=== PATIENT | male | born 1975 | race Caucasian/White ===

== ENCOUNTER → 2019-01-14 | Outpatient (CLI) | payer SELFPAY ==
[2019-01-15 10:33] LABS: RUBELLA IgG QUALITATIVE IMMUNE (IMMUNE)
== END ==
LOC: M WUC 13:26
PROVIDERS: ATTEND Physician Assistant
DX: Z02.1 Encounter for pre-employment examination (principal)

== ENCOUNTER 2020-04-20 12:14 | Emergency (ER) | payer OTHER, MEDICAID, SELFPAY ==
[~2020-04-20] VITALS: Ht 172.7 cm; Wt 69.5 kg
[2020-04-20] MEDS ORDERED: NS 1,000 ML IV SCH (13:14)
[2020-04-20] MEDS ORDERED: KETOROLAC 30 MG/ML 1ML VIAL IV ONE (13:15)
[2020-04-20 13:21] LABS: BASO # 0.1 10^3/uL (0.0-0.2); BASO % 0.6 % (0.0-1.0); EOS # 0.1 10^3/uL (0.0-0.5); EOS % 1.1 % (0.0-3.0); HEMATOCRIT 45.8 % (42.0-52.0); LYMPH # 2.4 10^3/uL (1.5-5.0); LYMPH % 25.6 % (24.0-44.0); MEAN CORPUSCULAR HEMOGLOBIN 30.5 pg (27.0-33.0); MEAN CORPUSCULAR HGB CONC 32.8 g/dl (32.0-36.5); MEAN CORPUSCULAR VOLUME 93.1 fl (80.0-96.0); MONO # 0.6 10^3/uL (0.0-0.8); MONO % 6.3 % (0.0-5.0); NEUTROPHILS # 6.1 10^3/uL (1.5-8.5); NEUTROPHILS % 66.2 % (36.0-66.0); PLATELET COUNT, AUTOMATED 253 10^3/uL (150-450); RED BLOOD COUNT 4.92 10^6/uL (4.30-6.10); WHITE BLOOD COUNT 9.3 10^3/uL (4.0-10.0)
[2020-04-20 13:52] LABS: ALBUMIN 3.9 GM/DL (3.2-5.2); ALT/SGPT 33 U/L (12-78); BILIRUBIN,DIRECT < 0.1 MG/DL (0.0-0.2); BILIRUBIN,TOTAL 0.2 MG/DL (0.2-1.0); BLOOD UREA NITROGEN 15 MG/DL (7-18); CALCIUM LEVEL 8.9 MG/DL (8.5-10.1); CARBON DIOXIDE LEVEL 28 MEQ/L (21-32); CHLORIDE LEVEL 110 MEQ/L (98-107); CK-MB VALUE MASS 1.3 NG/ML (<3.6); CPK CREATINE PHOSPHOKINASE 61 U/L (39-308); CREATININE FOR GFR 0.93 MG/DL (0.70-1.30); GLOMERULAR FILTRATION RATE > 60.0 (>60); GLUCOSE, FASTING 83 MG/DL (70-100); LIPASE 182 U/L (73-393); MB/CK RELATIVE INDEX 2.13 (< OR =4); POTASSIUM SERUM 3.8 MEQ/L (3.5-5.1); SODIUM LEVEL 141 MEQ/L (136-145); TROPONIN I < 0.02 NG/ML (< 0.10)
[2020-04-20] MEDS ORDERED: ISOVUE-370 76% 100ML VIAL As Ordered ONE (14:05)
[2020-04-20] MEDS ORDERED: MORPHINE 4 MG/ML 1ML VIAL/SYRINGE (J2270) IV ONE (14:30)
--- NOTE | 2020-04-20 14:52 | REPVR ---
PROCEDURE INFORMATION: Exam: CT Abdomen And Pelvis With Contrast Exam date and time: 04/20/2020 2:07 PM Age: 45 years old Clinical indication: Abdominal pain; Flank; Left; Additional info: Left flank pain TECHNIQUE: Imaging protocol: Computed tomography of the abdomen and pelvis with intravenous contrast. Radiation optimization: All CT scans at this facility use at least one of these dose optimization techniques: automated exposure control; mA and/or kV adjustment per patient size (includes targeted exams where dose is matched to clinical indication); or iterative reconstruction. Contrast material: ISOVUE 370; Contrast volume: 100 ml; Contrast route: INTRAVENOUS (IV); COMPARISON: No relevant prior studies available. FINDINGS: Lungs: Chest/lung findings are dictated separately. Liver: Normal. No mass. Gallbladder and bile ducts: There has been a cholecystectomy. No significant biliary ductal dilatation. Pancreas: Normal. No ductal dilation. Spleen: Normal. No splenomegaly. Adrenals: Normal. No mass. Kidneys and ureters: Normal. No hydronephrosis. Stomach and bowel: Unremarkable. No obstruction. No mucosal thickening. Appendix: No evidence of appendicitis. Intraperitoneal space: Unremarkable. No free air. No significant fluid collection. Vasculature: Unremarkable. No abdominal aortic aneurysm. Lymph nodes: Unremarkable. No enlarged lymph nodes. Bladder: Bladder is nondistended, limiting evaluation. Reproductive: Unremarkable as visualized. Bones/joints: Unremarkable. No acute fracture. Soft tissues: Tiny fat containing bilateral indirect inguinal hernias. IMPRESSION: No acute abnormality within the abdomen/pelvis. Electronically signed by: Mariela Rice On 04/20/2020 14:52:08 PM
--- NOTE | 2020-04-20 15:02 | REPVR ---
PROCEDURE INFORMATION: Exam: CT Angiography Chest With Contrast Exam date and time: 04/20/2020 2:07 PM Age: 45 years old Clinical indication: Shortness of breath; Additional info: SOB, hurts to breathe TECHNIQUE: Imaging protocol: Computed tomographic angiography of the chest with intravenous contrast. 3D rendering (Not supervised by radiologist): MIP and/or 3D reconstructed images were created by the technologist. Radiation optimization: All CT scans at this facility use at least one of these dose optimization techniques: automated exposure control; mA and/or kV adjustment per patient size (includes targeted exams where dose is matched to clinical indication); or iterative reconstruction. Contrast material: ISOVUE 370; Contrast volume: 100 ml; Contrast route: INTRAVENOUS (IV); COMPARISON: No relevant prior studies available. FINDINGS: Pulmonary arteries: Normal. No pulmonary emboli. Aorta: Unremarkable. No aortic aneurysm. No aortic dissection. Lungs: Noncalcified 11 mm left lower lobe pulmonary nodule (series 401, image 115). Pleural space: Unremarkable. No pneumothorax. No pleural effusion. Heart: Unremarkable. No cardiomegaly. No pericardial effusion. Lymph nodes: Unremarkable. No enlarged lymph nodes. Bones/joints: Unremarkable. No acute fracture. Soft tissues: Unremarkable. Other findings: Abdominal findings are dictated separately. IMPRESSION: 1. No evidence of pulmonary embolism. 2. Noncalcified 11 mm left lower lobe pulmonary nodule. Recommend comparison with any prior CT examinations that are available. If none are available, recommend followup according to Fleischner criteria. Fleischner society recommendations for followup and management of pulmonary nodules in adults detected incidentally on screening CT (2017): Less than or equal to 6 mm (solitary or multiple): Low risk patients- no followup needed. High risk patients- optional CT in 12 months. 6-8 mm nodule (solitary): Low-risk patients- CT at 6-[address] at 18-24 months. High risk patients- CT at 6-12 months, then CT at 18-24 months. 6-8 mm nodule (multiple): Low-risk patients- CT at 3-[address] at 18-24 months. High risk patients- CT at 3-6 months, then CT at 18-24 months. >8 mm (solitary): Low-risk patients- consider CT, PET/CT, or tissue sampling at 3 months. High-risk patients- same as for low-risk patients. >8mm (multiple): Low-risk patients - CT at 3-6 months, then at 18-24 months. High-risk patients - same as for low risk patients. Electronically signed by: Mariela Rice On 04/20/2020 15:01:43 PM
[2020-04-20 16:00] VITALS: BP 126/87
--- NOTE | 2020-04-21 10:33 | ED PDOC ---
Post-Departure Follow-Up [facility] chest [facility] and to dr madeline mclain for fu Pattie Horn MD Apr 21, 2020 10:33
--- NOTE | 2020-05-04 15:13 | ECGEPIP ---
[facility] - ED Test Date: 2020-04-20 Pat Name: WALLACE MEYER Department: Room: - Gender: Male [employer]: coral : 1975 Requested By: DUANE Poe Order Number: [id number] Reading MD: Rigoberto Le Measurements Intervals [place] Rate: 57 P: 64 LA: 160 QRS: 39 QRSD: 89 T: 60 QT: 417 QTc: 406 Interpretive Statements SINUS BRADYCARDIA SEE SCANNED DOWNTIME REPORT
== END 2020-04-20 16:21 | disposition home or self-care (01) ==
LOC: M ED 12:14
DX: R91.1 Solitary pulmonary nodule (principal); R06.02 Shortness of breath; F41.9 Anxiety disorder, unspecified; Z87.442 Personal history of urinary calculi; F17.200 Nicotine dependence, unspecified, uncomplicated
CPT/HCPCS: 71275; 74177; 80048; 80076; 81001; 82550; 82553; 83690; 85025; 93005; 93041; 96361; 96374; 96375; 99284; J1885; J2270; Q9967

== ENCOUNTER → 2020-06-09 | Outpatient (REF) | payer OTHER ==
[2020-06-09 18:23] LABS: CHOLESTEROL LEVEL 191 MG/DL (<200); CHOLESTEROL RISK RATIO 5.617 (<5); HDL CHOLESTEROL 34 MG/DL (>40); LDL CHOLESTEROL 135 MG/DL (<100); NON-HDL-C 157 MG/DL; TRIGLYCERIDES LEVEL 110 MG/DL (<150)
[2020-06-09 18:48] LABS: HEMOGLOBIN A1c 5.4 %
[2020-06-09 19:10] LABS: HIV 1&2 SCREEN CENTAUR NEGATIVE (NEGATIVE)
== END ==
LOC: M SFHCPLAZ 14:43
DX: Z00.00 Encounter for general adult medical examination without abnormal findings (principal)

== ENCOUNTER → 2021-06-26 | Outpatient (CLI) | payer OTHER ==
[2021-06-26 15:42] LABS: HEMATOCRIT 42.1 % (42.0-52.0); MEAN CORPUSCULAR HGB CONC 33.3 g/dl (32.0-36.5); MEAN CORPUSCULAR VOLUME 93.3 fl (80.0-96.0); PLATELET COUNT, AUTOMATED 258 10^3/uL (150-450); RED BLOOD COUNT 4.51 10^6/uL (4.30-6.10); WHITE BLOOD COUNT 7.8 10^3/uL (4.0-10.0)
[2021-06-26 16:13] LABS: ALBUMIN 3.9 GM/DL (3.2-5.2); ALT/SGPT 21 U/L (12-78); BILIRUBIN,TOTAL 0.3 MG/DL (0.2-1.0); BLOOD UREA NITROGEN 19 MG/DL (7-18); CALCIUM LEVEL 9.4 MG/DL (8.5-10.1); CARBON DIOXIDE LEVEL 27 MEQ/L (21-32); CHLORIDE LEVEL 111 MEQ/L (98-107); CHOLESTEROL LEVEL 177 MG/DL (<200); CREATININE FOR GFR 1.13 MG/DL (0.70-1.30); FREE T4 0.86 NG/DL (0.76-1.46); GLOMERULAR FILTRATION RATE > 60.0 (>60); GLUCOSE, FASTING 94 MG/DL (70-100); HDL CHOLESTEROL 30 MG/DL (>40); LDL CHOLESTEROL 85 MG/DL (<100); NON-HDL-C 147 MG/DL; POTASSIUM SERUM 3.9 MEQ/L (3.5-5.1); SODIUM LEVEL 143 MEQ/L (136-145); TOTAL PROTEIN 7.1 GM/DL (6.4-8.2); TRIGLYCERIDES LEVEL 310 MG/DL (<150)
[2021-06-26 16:56] LABS: HEPATITIS C VIRUS ABY INDEX 0.1 INDEX (<0.8)
== END ==
LOC: M PLALAB 13:23
PROVIDERS: ATTEND Student in an Organized Health Care Education/Training Program
DX: Z00.00 Encounter for general adult medical examination without abnormal findings (principal)

== ENCOUNTER → 2021-06-26 | Outpatient (REF) | payer OTHER ==
[~2021-06-26] MED LIST: AUGM875T28 PO; GABA800T4; LEXA1TAB2 PO; OMEP40CA5; ROSU20TA5
== END ==
LOC: M SFHCPLAZ 12:50
PROVIDERS: ATTEND Family Medicine
DX: Z00.00 Encounter for general adult medical examination without abnormal findings (principal); F41.9 Anxiety disorder, unspecified; Z72.0 Tobacco use

== ENCOUNTER 2021-09-03 12:48 | Emergency (ER) | payer OTHER ==
[~2021-09-03] VITALS: Ht 172.7 cm; Wt 60.6 kg
[2021-09-03 12:50] VITALS: BP 128/70
[2021-09-04] MEDS ORDERED: LEXA1TAB2 PO (15:14)
[2021-09-04] MEDS ORDERED: ROSU20TA5 (15:14)
[2021-09-04] MEDS ORDERED: OMEP40CA5 (15:14)
[2021-09-04] MEDS ORDERED: GABA800T4 (15:14)
[2021-09-04] MEDS ORDERED: AUGM875T28 PO (19:21)
== END 2021-09-03 20:20 | disposition left against medical advice (07) ==
LOC: M ED 12:48
DX: Z53.21 Procedure and treatment not carried out due to patient leaving prior to being seen by health care provider (principal)

== ENCOUNTER 2021-09-04 15:03 | Emergency (ER) | payer OTHER ==
[~2021-09-04] VITALS: Ht 172.7 cm; Wt 59.6 kg
[2021-09-04] MEDS ORDERED: GABA800T4 (15:14)
[2021-09-04] MEDS ORDERED: LEXA1TAB2 PO (15:14)
[2021-09-04] MEDS ORDERED: OMEP40CA5 (15:14)
[2021-09-04] MEDS ORDERED: ROSU20TA5 (15:14)
[2021-09-04] MEDS ORDERED: NS 1,000 ML IV ONE (17:10)
[2021-09-04] MEDS ORDERED: methylPREDNISolone 125MG 2ML VIAL IV ONE (17:10)
[2021-09-04] MEDS ORDERED: AMPICILLIN SOD/SULBACTAM SOD 3 GM in D5W MINI-BAG PLUS 100 ML IV ONE (17:10)
[2021-09-04 17:51] LABS: BASO # 0.1 10^3/uL (0.0-0.2); BASO % 0.6 % (0.0-1.0); EOS # 0.1 10^3/uL (0.0-0.5); EOS % 0.5 % (0.0-3.0); HEMATOCRIT 44.8 % (42.0-52.0); HEMOGLOBIN 15.2 g/dl (13.5-17.5); LYMPH # 1.7 10^3/uL (1.5-5.0); LYMPH % 16.4 % (24.0-44.0); MEAN CORPUSCULAR HGB CONC 33.9 g/dl (32.0-36.5); MEAN CORPUSCULAR VOLUME 91.4 fl (80.0-96.0); MONO % 9.5 % (2.0-8.0); NEUTROPHILS # 7.7 10^3/uL (1.5-8.5); NEUTROPHILS % 72.6 % (36.0-66.0); PLATELET COUNT, AUTOMATED 233 10^3/uL (150-450); WHITE BLOOD COUNT 10.6 10^3/uL (4.0-10.0)
[2021-09-04] MEDS ORDERED: ACETAMINOPHEN 325 MG TAB PO ONE (17:55)
[2021-09-04] MEDS ORDERED: ISOVUE-370 76% 100ML VIAL As Ordered ONE (17:57)
[2021-09-04 18:16] LABS: ALBUMIN 4.4 GM/DL (3.2-5.2); BILIRUBIN,DIRECT 0.2 MG/DL (0.0-0.2); BILIRUBIN,TOTAL 0.7 MG/DL (0.2-1.0); TOTAL PROTEIN 7.9 GM/DL (6.4-8.2)
[2021-09-04 19:15] VITALS: BP 107/67
[2021-09-04] MEDS ORDERED: AUGM875T28 PO (19:21)
== END 2021-09-04 19:56 | disposition home or self-care (01) ==
LOC: M ED 15:03
DX: L03.211 Cellulitis of face (principal); J10.1 Influenza due to other identified influenza virus with other respiratory manifestations; K02.9 Dental caries, unspecified; R50.9 Fever, unspecified; R68.84 Jaw pain; K21.9 Gastro-esophageal reflux disease without esophagitis; F32.A Depression, unspecified; F41.9 Anxiety disorder, unspecified; Z79.899 Other long term (current) drug therapy
CPT/HCPCS: 70487; 80047; 80076; 83605; 85025; 87040; 96365; 96375; 99284; J2930; Q9967

== ENCOUNTER → 2021-11-22 | Outpatient (CLI) | payer OTHER | LOC: M RAD 13:57 | PROVIDERS: ATTEND Student in an Organized Health Care Education/Training Program | DX: R91.1 Solitary pulmonary nodule (principal) ==

== ENCOUNTER → 2021-12-20 | Outpatient (REF) | payer OTHER | LOC: M SFHCPLAZ 15:13 | PROVIDERS: ATTEND Family Medicine | DX: R04.2 Hemoptysis (principal) ==

== ENCOUNTER → 2021-12-20 | Outpatient (CLI) | payer OTHER ==
[2021-12-20 18:20] LABS: FREE T4 0.8 NG/DL (0.76-1.46); THYROID STIMULATING HORMONE 1.2 uIU/ML (0.358-3.740)
== END ==
LOC: M PLALAB 15:48
PROVIDERS: ATTEND Student in an Organized Health Care Education/Training Program
DX: F41.9 Anxiety disorder, unspecified (principal)

== ENCOUNTER → 2021-12-20 | Outpatient (CLI) | payer OTHER | LOC: M PLALAB 15:51 | PROVIDERS: ATTEND Student in an Organized Health Care Education/Training Program | DX: R04.2 Hemoptysis (principal) ==

== ENCOUNTER 2022-12-23 03:57 | Emergency (ER) | payer OTHER ==
[~2022-12-23] VITALS: Ht 172.7 cm; Wt 68.2 kg
[2022-12-23] MEDS ORDERED: VENL150C43 (07:57)
[2022-12-23 08:34] VITALS: BP 107/71
== END 2022-12-23 09:46 | disposition home or self-care (01) ==
LOC: M ED 03:57
DX: S13.4XXA Sprain of ligaments of cervical spine, initial encounter (principal); V29.99XA Rider (driver) (passenger) of other motorcycle injured in unspecified traffic accident, initial encounter; F17.200 Nicotine dependence, unspecified, uncomplicated; F10.10 Alcohol abuse, uncomplicated; Z79.83 Long term (current) use of bisphosphonates; Z79.899 Other long term (current) drug therapy

== ENCOUNTER → 2023-03-27 | Outpatient (REF) | payer OTHER ==
[~2023-03-27] MED LIST changes: -ROSU20TA5; +ROSU20TA61; +VENL150C43
== END ==
LOC: M SFHCPLAZ 18:08
PROVIDERS: ATTEND Internal Medicine Hematology
DX: Z00.00 Encounter for general adult medical examination without abnormal findings (principal)

== ENCOUNTER 2025-03-28 19:55 | Emergency (ER) | payer OTHER, SELFPAY ==
[~2025-03-28] VITALS: Ht 172.7 cm; Wt 65.0 kg
[~2025-03-28 19:55] MED LIST changes: +GABA-1635; -GABA800T4; -ROSU20TA61; +ROSU20TA86
[2025-03-28 20:11] VITALS: BP 169/87; TEMP 97.8; O2SAT 97
[2025-03-28 20:41] LABS: PLATELET COUNT, AUTOMATED 253 10^3/uL (150-450)
[2025-03-28 21:13] LABS: ETHYL ALCOHOL (ETHANOL) 0.003 % (0.000-0.010)
[2025-03-28 21:15] LABS: ALT/SGPT 89 U/L (7.0-40); AST/SGOT 33 U/L (<34); CALCIUM LEVEL 9.4 MG/DL (8.5-10.1); CARBON DIOXIDE LEVEL 24 MMOL/L (20-31); CHLORIDE LEVEL 113 MMOL/L (98-107); CREATININE FOR GFR 0.88 MG/DL (0.70-1.30); GLOMERULAR FILTRATION RATE > 90.0 (>56); POTASSIUM SERUM 4.2 MMOL/L (3.5-5.1); SALICYLATE LEVEL < 3.0 MG/DL (<30); SODIUM LEVEL 147 MMOL/L (136-145)
[2025-03-28 21:46] LABS: BARBITURATES URINE NEGATIVE (NEGATIVE); BENZODIAZEPINES URINE NEGATIVE (NEGATIVE); CANNABINOIDS URINE NEGATIVE (NEGATIVE); METHADONE URINE NEGATIVE (NEGATIVE); OPIATES URINE NEGATIVE (NEGATIVE); PHENCYCLIDINE URINE NEGATIVE (NEGATIVE)
[2025-03-28 21:48] LABS: AMPHETAMINES LEVEL URINE POSITIVE (NEGATIVE); COCAINE METABOLITE URINE POSITIVE (NEGATIVE)
== END 2025-03-28 22:14 | disposition home or self-care (01) ==
LOC: M ED 19:55
DX: F43.0 Acute stress reaction (principal); F98.9 Unspecified behavioral and emotional disorders with onset usually occurring in childhood and adolescence; F41.9 Anxiety disorder, unspecified; F17.210 Nicotine dependence, cigarettes, uncomplicated; Z79.899 Other long term (current) drug therapy

== ENCOUNTER → 2025-04-14 | Outpatient (CLI) | payer OTHER, SELFPAY ==
[2025-04-14 18:13] LABS: PLATELET COUNT, AUTOMATED 229 10^3/uL (150-450)
[2025-04-14 19:09] LABS: ESTIMATED AVERAGE GLUCOSE 111.0 MG/DL (60-110)
[2025-04-14 19:34] LABS: ALT/SGPT 48 U/L (7.0-40); AST/SGOT 28 U/L (<34); CALCIUM LEVEL 8.7 MG/DL (8.5-10.1); CARBON DIOXIDE LEVEL 24 MMOL/L (20-31); CHLORIDE LEVEL 109 MMOL/L (98-107); CHOLESTEROL LEVEL 127 MG/DL (<200); CHOLESTEROL RISK RATIO 3.47 (<5); CREATININE FOR GFR 0.92 MG/DL (0.70-1.30); GLOMERULAR FILTRATION RATE > 90.0 (>56); LDL CHOLESTEROL 47.9 MG/DL (<100); NON-HDL-C 90.5 MG/DL; POTASSIUM SERUM 4.4 MMOL/L (3.5-5.1); SODIUM LEVEL 144 MMOL/L (136-145); TRIGLYCERIDES LEVEL 213 MG/DL (<150)
[2025-04-14 19:36] LABS: FREE T4 1.93 NG/DL (0.89-1.76)
[2025-04-18 13:38] LABS: RUBEOLA IgG ANTIBODY 37.3 AU/mL (>16.49)
== END ==
LOC: M PLALAB 14:50
DX: Z13.29 Encounter for screening for other suspected endocrine disorder (principal); R76.8 Other specified abnormal immunological findings in serum; Z13.0 Encounter for screening for diseases of the blood and blood-forming organs and certain disorders involving the immune mechanism; Z13.1 Encounter for screening for diabetes mellitus; E78.2 Mixed hyperlipidemia

== ENCOUNTER → 2025-04-15 | Outpatient (CLI) | payer OTHER | LOC: M PLALAB 10:58 | DX: R76.8 Other specified abnormal immunological findings in serum (principal) ==

== ENCOUNTER → 2025-05-03 | Outpatient (CLI) | payer OTHER ==
[2025-05-03 18:39] LABS: FREE T4 2.28 NG/DL (0.89-1.76)
[2025-05-03 18:42] LABS: TOTAL T3 282.0 NG/DL (60.0-181.0)
[2025-05-03 18:43] LABS: THYROID PEROXIDASE ANTIBODY 58 U/ML (<60.0)
== END ==
LOC: M PLALAB 14:35
PROVIDERS: ATTEND Nurse Practitioner Family
DX: E05.00 Thyrotoxicosis with diffuse goiter without thyrotoxic crisis or storm (principal)

== ENCOUNTER 2025-05-25 04:37 | Emergency (ER) | payer OTHER, SELFPAY ==
[~2025-05-25] VITALS: Ht 172.7 cm; Wt 61.4 kg
[2025-05-25 04:40] VITALS: BP 119/68; TEMP 98.3; O2SAT 96
[2025-05-25] MEDS ORDERED: ATOR1TAB19 PO (04:58)
[2025-05-25] MEDS ORDERED: ONDA-282 PO (11:07)
== END 2025-05-25 06:45 | disposition left against medical advice (07) ==
LOC: M ED 04:37
DX: Z53.21 Procedure and treatment not carried out due to patient leaving prior to being seen by health care provider (principal)

== ENCOUNTER 2025-05-25 07:47 | Emergency (ER) | payer OTHER, SELFPAY ==
[~2025-05-25] VITALS: Ht 172.7 cm; Wt 59.1 kg
[~2025-05-25 07:47] MED LIST changes: +ATOR1TAB19 PO
[2025-05-25 09:37] LABS: BASO # 0.0 10^3/uL (0.0-0.2); BASO % 0.3 % (0.0-1.0); EOS # 0.0 10^3/uL (0.0-0.5); EOS % 0.2 % (0.0-3.0); LYMPH # 0.7 10^3/uL (1.5-5.0); LYMPH % 5.8 % (24.0-44.0); MONO # 0.3 10^3/uL (0.0-0.8); MONO % 2.6 % (2.0-8.0); NEUTROPHILS # 11.0 10^3/uL (1.5-8.5); NEUTROPHILS % 90.9 % (36.0-66.0); PLATELET COUNT, AUTOMATED 240 10^3/uL (150-450)
[2025-05-25 10:04] LABS: ALT/SGPT 51 U/L (7.0-40); AST/SGOT 29 U/L (<34); CALCIUM LEVEL 8.6 MG/DL (8.5-10.1); CARBON DIOXIDE LEVEL 27 MMOL/L (20-31); CHLORIDE LEVEL 105 MMOL/L (98-107); CREATININE FOR GFR 0.76 MG/DL (0.70-1.30); GLOMERULAR FILTRATION RATE > 90.0 (>56); POTASSIUM SERUM 4.0 MMOL/L (3.5-5.1); SODIUM LEVEL 144 MMOL/L (136-145)
[2025-05-25] MEDS ORDERED: ONDA-282 PO (11:07)
[2025-05-25 11:51] VITALS: BP 119/65; TEMP 99; O2SAT 96
== END 2025-05-25 11:56 | disposition home or self-care (01) ==
LOC: M ED 07:47 → EDBD 07:47 → M ED 11:56
DX: R11.10 Vomiting, unspecified (principal); E78.00 Pure hypercholesterolemia, unspecified; K21.9 Gastro-esophageal reflux disease without esophagitis; F41.9 Anxiety disorder, unspecified; F32.A Depression, unspecified; F17.210 Nicotine dependence, cigarettes, uncomplicated; Z79.899 Other long term (current) drug therapy